=== PATIENT | female | born 1960 | race Caucasian/White ===

== ENCOUNTER 2021-11-02 10:17 | Inpatient (IN) | payer OTHER ==
[~2021-11-02] VITALS: Ht 162.6 cm; Wt 120.7 kg
[~2021-11-02 10:17] MED LIST: ALTACE5 M1; ALTACE5 MG; ATACAND HCT 11 UDTA1; TORADOL10 MG; TRAMADOL HCL-AP1 TAB
[2021-11-02] MEDS ORDERED: TOPROL XL100 M1 PO (10:44)
[2021-11-02] MEDS ORDERED: COZAAR100 MG PO (10:44)
[2021-11-02] MEDS ORDERED: AMIODARONE HCL100 MG PO (10:44)
[2021-11-02] MEDS ORDERED: PROZAC40 MG PO (10:45)
[2021-11-02] MEDS ORDERED: ANASTROZOLE1 MG PO (10:45)
[2021-11-07] MEDS ORDERED: AMIODARONE HCL200 MG (08:01)
[2021-11-07] MEDS ORDERED: PREDNISONE20 M1 (08:01)
== END 2021-11-09 16:56 | disposition home or self-care (01) | DRG 470 ==
LOC: O/R 11-07 07:58 → SURG 11-07 11:30 → SURH 11-07 12:45 → SURG 11-07 15:17
PROVIDERS: ADMIT Orthopaedic Surgery; ATTEND Orthopaedic Surgery
PROC: 4A12X4Z Monitoring of Cardiac Electrical Activity, External Approach (ICD-10-PCS; 2021-11-07)
PROC: 0SRC0J9 Replacement of Right Knee Joint with Synthetic Substitute, Cemented, Open Approach (ICD-10-PCS; principal; 2021-11-07 15:15)
DX: M17.11 Unilateral primary osteoarthritis, right knee (principal); D62 Acute posthemorrhagic anemia; M85.661 Other cyst of bone, right lower leg; E66.01 Morbid (severe) obesity due to excess calories